=== PATIENT | male | born 1995 | race Two or more races ===

== ENCOUNTER 2016-07-03 04:51 | Emergency (ER) | payer MEDICAID, OTHER ==
[~2016-07-03] VITALS: Ht 170.2 cm; Wt 112.9 kg
[2016-07-03 04:54] VITALS: BP 121/81
[2016-07-03] MEDS ORDERED: NKM (04:58)
[2016-07-03 05:05] VITALS: BP 121/81
[2016-07-03] MEDS ORDERED: TYLENOL EXTRA500 MG ORAL (05:05)
[2016-07-03] MEDS ORDERED: AUGMENTIN 875-1 EAC1 ORAL (05:05)
[2016-07-03] MEDS ORDERED: IBUPROFEN800 MG ORAL (05:06)
--- NOTE | 2016-07-03 05:10 | Emergency Room Report ---
History of Present Illness General Chief Complaint: Earache Source: Patient Present Illness HPI 20YOM with 2 days left earache. Was diagnosed with left otitis media by PMD - currently taking Augmentin BID - has taken 3 pills. Taking Tylenol 2-3x a day for pain. Mother has been putting "drops" in his left ear that she "got from the pharmacy." History of bilateral cochlear implants for hearing loss. Last one placed on right side 5 months prior. Denies fever/chills, headache, neck pain, stiffness, vision changes. Allergies: Coded Allergies: No Known Allergies (Unverified , 08/02/14) Patient History Past Medical History: other - hearing loss Past Surgical History: none Pertinent Family History: none Social History: Denies: alcohol use, drug use, smoking Immunizations: UTD Reviewed Nursing Documentation: PMH: Agreed, PSxH: Agreed Review of Systems All Other Systems: negative except mentioned in HPI Physical Exam Vital Signs Date Time Temp Pulse Resp B/P Pulse Ox O2 Delivery O2 Flow Rate FiO2 07/03/16 04:54 97.5 83 16 121/81 98 Room Air Sp02 EP Interpretation: reviewed, normal General Appearance: normal inspection, well appearing, no apparent distress, alert, GCS 15, non-toxic Head: atraumatic Eyes: bilateral eye EOMI, bilateral eye PERRL ENT: hearing grossly normal, normal voice, uvula midline, moist mucus membranes , other - Bilateral cochlear implants. Left TM erythematous, bulging, canal is red Neck: normal inspection, full range of motion, supple, no bony tend Respiratory: normal inspection, lungs clear, normal breath sounds, no respiratory distress, no retraction, no wheezing Cardiovascular #1: regular rate, rhythm, no edema Gastrointestinal: normal inspection, normal bowel sounds, non tender, soft, no guarding, no hernia Genitourinary: no CVA tenderness Musculoskeletal: normal inspection, back normal, normal range of motion, Corry' s Sign negative Neurologic: normal inspection, alert, oriented x3, responsive, speech normal Psychiatric: normal inspection, judgement/insight normal, mood/affect normal Skin: normal inspection, normal color, no rash Lymphatic: normal inspection Medical Decision Making Diagnostic Impression: Primary Impression: Earache, left ER Course Advised FINISHING Augmentin Rx Ibuprofen to take with Tylenol he has Return here or PMD if no improvement AFTER he has completed course of Augmentin Advised mother to STOP placing drops in left ear DC home Last Vital Signs Date Time Temp Pulse Resp B/P Pulse Ox O2 Delivery O2 Flow Rate FiO2 07/03/16 04:54 97.5 83 16 121/81 98 Room Air Status: improved Disposition: HOME, SELF-CARE Condition: Improved Scripts Ibuprofen* (MOTRIN*) 800 Mg Tablet 800 MG ORAL THREE TIMES A DAY for earache for 7 Days, #30 TAB 0 Refills Prov: DEMOND CLEMONS M.D. 07/03/16 Patient Instructions: Otitis Media, Adult Additional Instructions: - Take ALL the antibiotics until completed - for next 8 days. - You can alternate ibuprofen with the tylenol you have for pain - take with food - STOP putting drops or any other liquid in your ears - Follow up with your primary care doctor if no improvement in pain after you complete the antibiotics DEMOND CLEMONS M.D. July 03, 2016 05:09
== END 2016-07-03 05:10 | disposition home or self-care (01) ==
LOC: EMR 04:58
DX: H92.02 Otalgia, left ear (principal); Z96.21 Cochlear implant status
CPT/HCPCS: 99283